=== PATIENT | female | born 1995 | race Caucasian/White ===

== ENCOUNTER 2016-07-28 16:04 | Emergency (ER) | payer OTHER ==
[2016-07-28 16:19] VITALS: BP 135/80; BMI 39.4
--- NOTE | 2016-07-28 16:44 | DR.GENAD ---
HPI - PCP Primary Care Physician: NFD - Complaint/Symptoms Chief Complaint Doctors Comments: History as stated Chief Complaint:: FEELING BAD, SHAKING AND FEELING BAD, NON PRODUCTIVE COUGH. EXTREME WEAKNESS. DENIES NAUSEA, VOMITING AND DIARRHEA - Source History Provided: Patient - Mode of Arrival Mode of Arrival: Ambulatory - Timing Onset of Chief Complaint: 07/27/16 PMH - PMH Past Medical History: No Past Surgical History: Yes Surgical History: Cholecystectomy - Family History History of Family Medical Conditions: Yes Family Medical History: Diabetes Mellitus, Hypertension - Social History Type of Tobacco Use: Cigarettes Alcohol Use: None Do you use any recreational Drugs:: No Lives Where: [facility]isted [facility] - infectious screening In the last 2 months have you had wt loss of >10#?: NO Have you had fever, night sweats or hemotysis?: No Have you traveled outside the country in the last 6 months?: No ROS - Review of Systems Eyes: No Symptoms Reported ENTM: No Symptoms Reported Respiratoy: No Symptoms Reported Cardiovascular: No Symptoms Reported Gastrointestinal/Abdominal: No Symptoms Reported Genitourinary: No Symptoms Reported Neurological: No Symptoms Reported Musculoskeletal: No Symptoms Reported Integumentary: No Symptoms Reported Hematologic/Lymphatic: No Symptoms Reported Endocrine: No Symptoms Reported Psychiatric: No Symptoms Reported All Other Systems: Reviewed and Negative PE - Vital Signs Vitals: Temperature 97.9 F Pulse Rate 99 Respiratory Rate 14 Blood Pressure [Left Arm] 129/69 Blood Pressure 135/80 O2 Sat by Pulse Oximetry 99 - General Limitations: No Limitations General Appearance: Alert, In No Apparent Distress - Head Head Exam: Normal Inspection, Atraumatic - Eyes Eye exam: Normal Appearance, PERRL, EOMI - ENT ENT Exam: Normal Exam External Ear Exam: Normal External Inspection TM/Canal Exam: Bilateral Normal Nose Exam: Normal Nose Exam Mouth Exam: Normal Inspection Throat Exam: Normal Inspection - Neck Neck Exam: Normal Inspection - Chest Chest Inspection: Normal Inspection - Respiratory Respiratory Exam: Normal Lung Sounds Bilat Respiratory Exam: Bilateral Clear to Auscultation - Cardiovascular Cardiovascular Exam: Regular Rate, Normal Rhythm - Abdominal Exam Abdominal Exam: Normal Inspection, Normal Bowel Sounds Abdominal Tenderness: negative: RUQ, RLQ, LUQ, LLQ, Epigastrium, Suprapubic, Diffuse, Mild, Moderate, Severe, Other - Back Back Exam: Normal Inspection, Full ROM - Neurologic Neurological Exam: Alert, Oriented X3, CN II-XII Intact - Skin Skin Exam: Warm, Dry, Intact Course - Reevaluation 1st: Unchanged ROR - Labs Reviewed Laboratory Results Reviewed?: Yes (strep neg; Infulenza pending) Result Diagrams: 07/28/16 16:50 07/28/16 16:50 Laboratory: WBC 10.9 X10^3/uL (3.6-10.0) H 07/28/16 16:50 RBC 4.99 X10^6/uL (3.5-5.4) 07/28/16 16:50 Hgb 14.6 g/dL (12.0-16.0) 07/28/16 16:50 Hct 43.1 % (36.0-47.0) 07/28/16 16:50 MCV 86.4 fL (80.0-100.0) 07/28/16 16:50 MCH 29.3 pg (27.0-34.0) 07/28/16 16:50 MCHC 33.9 g/dL (33.0-35.0) 07/28/16 16:50 RDW 14.0 % (11.6-16.5) 07/28/16 16:50 Plt Count 307 X10^3/uL (150.0-450.0) 07/28/16 16:50 MPV 8.4 fL (7.4-11.0) 07/28/16 16:50 Neut % 72.6 % (42.0-75.0) 07/28/16 16:50 Lymph % 17.8 % (21.0-51.0) L 07/28/16 16:50 [place] % 6.2 % (0.0-13.0) 07/28/16 16:50 Eos % 2.9 % (0.9-2.9) 07/28/16 16:50 Baso % 0.5 % (0.2-1.0) 07/28/16 16:50 Neut # 7.9 x10^3/uL (2.2-4.8) H 07/28/16 16:50 Lymph # 1.9 X10^3/uL (1.3-2.9) 07/28/16 16:50 [place] # 0.7 x10^3/uL (0.3-0.8) 07/28/16 16:50 Eos # 0.3 x10^3/uL (0.0-0.2) H 07/28/16 16:50 Baso # 0.1 X10^3/uL (0.0-0.1) 07/28/16 16:50 Absolute Nucleated RBC 0.0 /100WBC 07/28/16 16:50 Sodium 143 mmol/L (136-145) 07/28/16 16:50 Corrected Sodium 144 mmol/L (136-145) 07/28/16 16:50 Potassium 3.9 mmol/L (3.5-5.1) 07/28/16 16:50 Chloride 108 mmol/L (98-107) H 07/28/16 16:50 Carbon Dioxide 24.7 mmol/L (21-32) 07/28/16 16:50 BUN 13 mg/dL (7-18) 07/28/16 16:50 Creatinine 0.92 mg/dL (0.55-1.02) 07/28/16 16:50 Est GFR (MDRD) Af Amer > 60 (>60) 07/28/16 16:50 Est GFR (MDRD) Non-Af > 60 (>60) 07/28/16 16:50 Glucose 141 mg/dL (65-99) H 07/28/16 16:50 Calcium 9.0 mg/dL (8.5-10.1) 07/28/16 16:50 Streptococcus Screen Negative (NEGATIVE) 07/28/16 16:48 - Diagnosis Discharge Problem: Upper respiratory infection Qualifiers: URI type: unspecified viral URI Qualified Code(s): J06.9 - Acute upper respiratory infection, unspecified; B97.89 - Other viral agents as the cause of diseases classified elsewhere - Discharge Plan Condition: Stable - Follow ups/Referrals Follow ups/Referrals: NFD,None [Primary Care Provider] - 3 days - Instructions
[2016-07-28 17:15] LABS: BASOPHILS # (AUTO) 0.1 X10^3/uL (0.0-0.1); BASOPHILS % (AUTO) 0.5 % (0.2-1.0); EOSINOPHILS # (AUTO) 0.3 x10^3/uL (0.0-0.2); EOSINOPHILS % (AUTO) 2.9 % (0.9-2.9); HEMATOCRIT 43.1 % (36.0-47.0); HEMOGLOBIN 14.6 g/dL (12.0-16.0); LYMPHOCYTES # (AUTO) 1.9 X10^3/uL (1.3-2.9); LYMPHOCYTES % (AUTO) 17.8 % (21.0-51.0); MEAN CORPUSCULAR HEMOGLOBIN 29.3 pg (27.0-34.0); MEAN CORPUSCULAR HGB CONC 33.9 g/dL (33.0-35.0); MEAN CORPUSCULAR VOLUME 86.4 fL (80.0-100.0); MEAN PLATELET VOLUME 8.4 fL (7.4-11.0); MONOCYTES # (AUTO) 0.7 x10^3/uL (0.3-0.8); MONOCYTES % (AUTO) 6.2 % (0.0-13.0); NEUTROPHILS # (AUTO) 7.9 x10^3/uL (2.2-4.8); NEUTROPHILS % (AUTO) 72.6 % (42.0-75.0); PLATELET COUNT 307 X10^3/uL (150.0-450.0); RED BLOOD COUNT 4.99 X10^6/uL (3.5-5.4); WHITE BLOOD COUNT 10.9 X10^3/uL (3.6-10.0)
[2016-07-28 17:19] LABS: BLOOD UREA NITROGEN 13 mg/dL (7-18); CARBON DIOXIDE 24.7 mmol/L (21-32); CHLORIDE 108 mmol/L (98-107); COR NA(FOR HYPERGLY) 144 mmol/L (136-145); CREATININE 0.92 mg/dL (0.55-1.02); GLUCOSE 141 mg/dL (65-99); SODIUM 143 mmol/L (136-145); eGFR BLACK RACES > 60 (>60); eGFR NON BLACK RACES > 60 (>60)
[2016-07-28] MEDS ORDERED: NS 1000 ML 1,000 ML IV ONE (20:20)
== END 2016-07-28 17:40 | disposition home or self-care (01) ==
LOC: ER 16:21
DX: J06.9 Acute upper respiratory infection, unspecified (principal); B97.89 Other viral agents as the cause of diseases classified elsewhere
CPT/HCPCS: 36415; 80048; 84702; 85025; 87070; 87502; 87503; 87880; 99282

== ENCOUNTER 2016-08-14 14:46 | Emergency (ER) | payer OTHER ==
[2016-08-14 14:48] VITALS: BP 135/80
[2016-08-14 14:53] VITALS: BMI 41.0
--- NOTE | 2016-08-14 15:22 | DR.GENAD ---
HPI - PCP Primary Care Physician: NFD - Complaint/Symptoms Chief Complaint:: PT C/O ABD PAIN TO LLQ. PT STATES SHE HAS TAKEN A HOME HCG THAT WAS POSITIVE. - Nurses notes reviewed Nurses Notes Review: Yes - Source History Provided: Patient - Mode of Arrival Mode of Arrival: Ambulatory - Timing Onset of Chief Complaint: 08/11/16 Came on: Gradually - Duration Duration: Constant Duration: Days - Location Location: [facility] - Severity Severity: Mild - Modifying Factors Worsens:: food - Associated Signs and Symptoms Associated Signs and Symptoms: none - Other History Other History: missed period, nausea PMH - PMH Past Medical History: No Past Surgical History: Yes Surgical History: Cholecystectomy - Family History History of Family Medical Conditions: Yes Family Medical History: Diabetes Mellitus, Hypertension - Social History Does patient currently use any type of tobacco product: Yes Have you used tobacco products in the last 12 months: Yes Type of Tobacco Use: Cigarettes Does any household member use tobacco: Yes Alcohol Use: None Do you use any recreational Drugs:: No Lives With: Family Lives Where: Home - infectious screening In the last 2 months have you had wt loss of >10#?: NO Have you had fever, night sweats or hemotysis?: No Have you traveled outside the country in the last 6 months?: No Isolation: Standard ROS - Review of Systems Constitutional: No Symptoms Reported Eyes: No Symptoms Reported ENTM: No Symptoms Reported Respiratoy: No Symptoms Reported Cardiovascular: No Symptoms Reported Gastrointestinal/Abdominal: Nausea Genitourinary: Dysuria Neurological: No Symptoms Reported Musculoskeletal: No Symptoms Reported Integumentary: No Symptoms Reported Hematologic/Lymphatic: No Symptoms Reported Endocrine: No Symptoms Reported Psychiatric: No Symptoms Reported All Other Systems: Reviewed and Negative PE - Vital Signs Vitals: Blood Pressure [Left Arm] 129/69 Blood Pressure 135/80 - General Limitations: No Limitations General Appearance: Alert - Head Head Exam: Normal Inspection - Eyes Eye exam: Normal Appearance, EOMI. negative: Scleral Icterus, Conjunctival Injection - ENT ENT Exam: Normal Exam, Normal Oropharynx External Ear Exam: Normal External Inspection - Neck Neck Exam: Normal Inspection, Full ROM - Chest Chest Inspection: Normal Inspection - Respiratory Respiratory Exam: negative: Accessory Muscle Use, Respiratory Distress Respiratory Exam: Bilateral Clear to Auscultation - Cardiovascular Cardiovascular Exam: Regular Rate - Extremities Extremities Exam: Normal Inspection, Full ROM - Back Back Exam: Normal Inspection, Full ROM - Neurologic Neurological Exam: Alert, Oriented X3, CN II-XII Intact - Psychiatric Psychiatric Exam: Normal Mood - Skin Skin Exam: Intact, Normal Color Course - Consultation Called: 16:10 ROR - Labs Reviewed Laboratory: HCG, Qual Negative <10 mIU/mL 08/14/16 15:30 Specimen Type Clean catch urine 08/14/16 15:32 Urine Color Dark yellow (YELLOW) 08/14/16 15:32 Urine Appearance Slightly hazy (CLEAR) 08/14/16 15:32 Urine pH 6.0 (5.0 - 8.0) 08/14/16 15:32 Ur Specific Hood 1.025 (1.000-1.030) 08/14/16 15:32 Urine Protein 2+ (NEGATIVE) 08/14/16 15:32 Urine Glucose (UA) Negative (NEGATIVE) 08/14/16 15:32 Urine Ketones Negative (NEGATIVE) 08/14/16 15:32 Urine Occult Blood 1+ (NEGATIVE) 08/14/16 15:32 Urine Nitrite Negative (NEGATIVE) 08/14/16 15:32 Urine Bilirubin Negative (NEGATIVE) 08/14/16 15:32 Urine Urobilinogen 1+ (NORMAL) 08/14/16 15:32 Ur Leukocyte Esterase 3+ (NEGATIVE) 08/14/16 15:32 Urine RBC 2-5 /HPF (NEGATIVE) 08/14/16 15:32 Urine WBC 8-12 /HPF (NEGATIVE) 08/14/16 15:32 Ur Squamous Epith Cells Many /HPF (NEGATIVE) 08/14/16 15:32 Urine Bacteria 2+ /HPF (NEGATIVE) 08/14/16 15:32 Urine Mucus Few /HPF (NEGATIVE) 08/14/16 15:32 Ur Culture Indicated? Yes/culture set up 08/14/16 15:32 - Diagnosis Discharge Problem: UTI (urinary tract infection) Qualifiers: Urinary tract infection type: acute cystitis Hematuria presence: with hematuria Qualified Code(s): N30.01 - Acute cystitis with hematuria - Discharge Plan Condition: Stable Prescriptions: Nitrofurantoin Macro [Macrobid Cap 100 mg Ext Rel] 100 mg PO BID #14 cap - Follow ups/Referrals Follow ups/Referrals: NFD,None [Primary Care Provider] - 3 days - Instructions
[2016-08-14 15:38] LABS: BILIRUBIN,URINE NEGATIVE (NEGATIVE); BLOOD/HEMOGLOBIN,URINE 1+ (NEGATIVE); GLUCOSE, URINE NEGATIVE (NEGATIVE); KETONES,URINE NEGATIVE (NEGATIVE); LEUKOCYTE ESTERASE ,URINE 3+ (NEGATIVE); NITRITES,URINE NEGATIVE (NEGATIVE); PROTEIN,URINE 2+ (NEGATIVE); UROBILINOGEN,URINE 1+ (NORMAL)
[2016-08-14 15:51] LABS: SERUM PREGNANCY TEST, QUAL NEGATIVE <10 mIU/mL
[2016-08-14 16:06] LABS: APPEARANCE,URINE SLIGHTLY HAZY (CLEAR); BACTERIA,URINE 2+ /HPF (NEGATIVE); COLOR,URINE DARK YELLOW (YELLOW); SQUAMOUS EPITHELIAL CELL,UR MANY /HPF (NEGATIVE)
[2016-08-14 16:07] LABS: MUCUS,URINE FEW /HPF (NEGATIVE)
== END 2016-08-14 16:23 | disposition home or self-care (01) ==
LOC: ER 15:06
DX: N30.01 Acute cystitis with hematuria (principal); B96.29 Other Escherichia coli [E. coli] as the cause of diseases classified elsewhere
CPT/HCPCS: 36415; 81001; 84703; 87086; 87088; 87186; 99282

== ENCOUNTER 2016-09-08 23:06 | Emergency (ER) | payer SELFPAY ==
[2016-09-08 23:13] VITALS: BP 122/81; BMI 41.1
--- NOTE | 2016-09-09 00:11 | DR.GENAD ---
HPI - PCP Primary Care Physician: NFD - HPI Comment HPI Comment: PAITNT INJURED KNEE FEW DAYS AGO. PROGRESSIVE PAIN SINCE. SWELLING NOTED BY PATIRNT BELOW LEFT KNEE. - Complaint/Symptoms Chief Complaint Doctors Comments: LEFT KNEE PAIN. TIMES ONE WEEK. Chief Complaint:: PT STATES" MY LEG HURTS FROM HERE TOO HERE, IT WAS BIGGER THAN THIS TODAY." PT POINTS TOO AREA BELOW KNEE AND ABOVE LT KNEE NO ACUTE DEFORMITY OR SWELLING NOTED - Nurses notes reviewed Nurses Notes Review: Yes - Source History Provided: Patient - Mode of Arrival Mode of Arrival: Ambulatory - Timing Onset of Chief Complaint: 09/01/16 Came on: Suddenly - Duration Duration: Constant Duration: Days - Severity Severity: Moderate PMH - PMH Past Medical History: No Past Surgical History: Yes Surgical History: Cholecystectomy - Family History History of Family Medical Conditions: Yes Family Medical History: Diabetes Mellitus - Social History Type of Tobacco Use: Cigarettes Do you use any recreational Drugs:: No Lives With: Family - infectious screening In the last 2 months have you had wt loss of >10#?: NO Have you had fever, night sweats or hemotysis?: No Have you traveled outside the country in the last 6 months?: No Isolation: Standard ROS - Review of Systems Constitutional: No Symptoms Reported Eyes: No Symptoms Reported ENTM: No Symptoms Reported Respiratoy: No Symptoms Reported Cardiovascular: No Symptoms Reported Gastrointestinal/Abdominal: No Symptoms Reported Genitourinary: No Symptoms Reported Neurological: No Symptoms Reported Musculoskeletal: Left, Knee (PAIN AND SWELLING LEFT KNEE.) Integumentary: No Symptoms Reported Hematologic/Lymphatic: No Symptoms Reported Endocrine: No Symptoms Reported All Other Systems: Reviewed and Negative PE - Vital Signs Vitals: Temperature 98.3 F Pulse Rate 100 Respiratory Rate 18 Blood Pressure [Left Arm] 129/69 Blood Pressure 122/81 O2 Sat by Pulse Oximetry 99 - General Limitations: No Limitations General Appearance: Alert - Head Head Exam: Normal Inspection - Eyes Eye exam: Normal Appearance - ENT ENT Exam: Normal External Ear Exam External Ear Exam: Normal External Inspection TM/Canal Exam: Bilateral Normal Nose Exam: Normal Nose Exam Mouth Exam: Normal Inspection Throat Exam: Normal Inspection - Neck Neck Exam: Normal Inspection - Chest Chest Inspection: Symmetric Chest Wall Rise - Respiratory Respiratory Exam: Normal Lung Sounds Bilat Respiratory Exam: Bilateral Clear to Auscultation - Cardiovascular Cardiovascular Exam: Regular Rate, Normal Rhythm, Normal Heart Sounds - Abdominal Exam Abdominal Exam: Normal Inspection - Extremities Extremities Exam: Tenderness (RIGHT KNEE TENDERNESS AND SWELLING BELOW LEFT KNEE ANTERIOR ASPECT.) - Back Back Exam: Normal Inspection - Neurologic Neurological Exam: Alert, Oriented X3 - Psychiatric Psychiatric Exam: Normal Affect, Normal Mood - Skin Skin Exam: Normal Color MDM - Differential Diagnosis Differential Diagnosis: RIGHT KNEE SPRAIN, FRACTURE, STRAIN OR CONTUSION. Course - Treatment Treatment: SEE ORDERS. - Education/Counseling Education/Counseling: Patient, Education Educated On: Diagnosis ROR - XRAY XRAY Interpreted by: Radiologist - Diagnosis Discharge Problem: Left knee sprain Qualifiers: Encounter type: initial encounter Involved ligament of knee: unspecified ligament Qualified Code(s): S83.92XA - Sprain of unspecified site of left knee, initial encounter Contusion of left knee Qualifiers: Encounter type: initial encounter Qualified Code(s): S80.02XA - Contusion of left knee, initial encounter - Discharge Plan Disposition: HOME, SELF-CARE Condition: Stable Prescriptions: Ibuprofen [Motrin Tab 800 mg] 800 mg PO Q8H PRN #20 tab PRN Reason: Pain/Inflammation - Follow ups/Referrals Follow ups/Referrals: NFD,None [Primary Care Provider] - 3 days - Instructions Instructions: Knee Sprain, [id number], Knee Pain, [id number] Additional Instructions: RETURN TO ED IF WORSE.
--- NOTE | 2016-09-09 00:37 | RAD ---
EXAM: Left knee x-ray INDICATION: Pain COMPARISION: No priors TECHNIQUE: AP and lateral, 2 views FINDINGS: No acute fracture or dislocation. There is no evidence of an intraosseous lesion. The joint spaces a re preserved. No joint effusion is identified. The surrounding soft tissues appear unremarkable. The re is no evidence of a radiopaque foreign body. IMPRESSION: Normal left knee x-ray exam Reported By:
[2016-09-09] MEDS ORDERED: MOTRIN TAB 800 MG PO ONE ×2 (00:47→00:51)
== END 2016-09-09 00:59 | disposition home or self-care (01) ==
LOC: ER 23:22
DX: S83.92XA Sprain of unspecified site of left knee, initial encounter (principal); S80.02XA Contusion of left knee, initial encounter; Y33.XXXA Other specified events, undetermined intent, initial encounter; Y92.9 Unspecified place or not applicable
CPT/HCPCS: 29530; 73560; 99282; 99283

== ENCOUNTER 2016-09-11 10:46 | Emergency (ER) | payer SELFPAY ==
[2016-09-11 10:51] VITALS: BP 122/72; BMI 41.1
--- NOTE | 2016-09-11 11:55 | DR.GENAD ---
HPI - PCP Primary Care Physician: NFD - Complaint/Symptoms Chief Complaint Doctors Comments: Patient admits to helping a natalie move from [place] over the weekend and now she has low back pain ahd nasal congestion. She denies fever, vomitng or diarrhea Chief Complaint:: PT C/O C/C/C FOR THE PAST 5 DAYS. PT STATES SHE WAS JUST SEEN FOR A DIFFERENT REASON ON THE AND HER LEG IS NOT GETTTING ANY BETTER ALSO - Source History Provided: Patient - Mode of Arrival Mode of Arrival: Ambulatory - Timing Onset of Chief Complaint: 09/06/16 PMH - PMH Past Medical History: No Past Surgical History: Yes Surgical History: Cholecystectomy - Family History History of Family Medical Conditions: Yes Family Medical History: Diabetes Mellitus - Social History Does patient currently use any type of tobacco product: Yes Have you used tobacco products in the last 12 months: Yes Type of Tobacco Use: Cigarettes Does any household member use tobacco: Yes Alcohol Use: None Do you use any recreational Drugs:: No Lives With: Family Lives Where: Home - infectious screening In the last 2 months have you had wt loss of >10#?: NO Have you had fever, night sweats or hemotysis?: No Have you traveled outside the country in the last 6 months?: No Isolation: Standard ROS - Review of Systems Eyes: No Symptoms Reported ENTM: No Symptoms Reported Respiratoy: No Symptoms Reported Cardiovascular: No Symptoms Reported Gastrointestinal/Abdominal: No Symptoms Reported Genitourinary: No Symptoms Reported Neurological: No Symptoms Reported, Emotional Problems Musculoskeletal: No Symptoms Reported Integumentary: No Symptoms Reported Hematologic/Lymphatic: No Symptoms Reported Endocrine: No Symptoms Reported Psychiatric: No Symptoms Reported All Other Systems: Reviewed and Negative PE - Vital Signs Vitals: Temperature 98.0 F Pulse Rate 71 Respiratory Rate 20 Blood Pressure [Left Arm] 129/69 Blood Pressure 122/72 O2 Sat by Pulse Oximetry 100 - General Limitations: No Limitations General Appearance: Alert, In No Apparent Distress - Head Head Exam: Normal Inspection, Atraumatic - Eyes Eye exam: Normal Appearance, PERRL, EOMI - ENT ENT Exam: Normal Exam External Ear Exam: Normal External Inspection TM/Canal Exam: Bilateral Normal Nose Exam: Normal Nose Exam Mouth Exam: Normal Inspection Throat Exam: Normal Inspection - Neck Neck Exam: Normal Inspection - Chest Chest Inspection: Normal Inspection - Respiratory Respiratory Exam: Normal Lung Sounds Bilat Respiratory Exam: Bilateral Clear to Auscultation - Cardiovascular Cardiovascular Exam: Regular Rate, Normal Rhythm - Abdominal Exam Abdominal Exam: Normal Inspection Abdominal Tenderness: negative: RUQ, RLQ, LUQ, LLQ, Epigastrium, Suprapubic, Diffuse, Mild, Moderate, Severe, Other - Extremities Extremities Exam: Normal Inspection, Full ROM - Back Back Exam: Normal Inspection, Full ROM - Neurologic Neurological Exam: Alert, Oriented X3, CN II-XII Intact - Psychiatric Psychiatric Exam: Normal Affect, Normal Mood - Skin Skin Exam: Warm, Dry, Intact - Diagnosis Discharge Problem: Acute rhinosinusitis - Discharge Plan Condition: Stable - Follow ups/Referrals Follow ups/Referrals: NFD,None [Primary Care Provider] - 3 days - Instructions
== END 2016-09-11 12:07 | disposition home or self-care (01) ==
LOC: ER 10:54
DX: J01.80 Other acute sinusitis (principal)
CPT/HCPCS: 99281; 99282

== ENCOUNTER 2016-09-13 20:30 | Emergency (ER) | payer SELFPAY ==
[2016-09-13 20:37] VITALS: BP 123/76; BMI 41.1
--- NOTE | 2016-09-13 21:05 | DR.FEVERAD ---
HPI - Time seen Time seen: 21:00 - PCP Primary Care Physician: NFD - Complaints/Symptoms Chief Complaint Doctor Comments: Patient states that she did not get her prescription for congestion two days ago because if was not covered by her insurance. It was OTC. Today c/o nipples hurting, has not done anything to cause them to hurt, no manipulation. Chief Complaint:: "MY NIPPLES FEEL LIKE THEY ARE ON FIRE, FEEL LIKE I GOT A FEVER. I FEEL LIKE I AM ON FIRE. I WAS GIVEN FLEXERIL FOR MY BACK YESTERDAY, I DON'T IF THIS IS A SIDE EFFECT OR NOT. I DID TAKE SOME COLD AND FLU THIS AM FOR MY COLD." - Source History Provided: Patient - Mode of Arrival Mode of Arrival: Ambulatory - Timing Onset of Chief Complaint: 09/13/16 PMH - PMH Past Medical History: No Past Surgical History: Yes Surgical History: Cholecystectomy - Family History History of Family Medical Conditions: Yes Family Medical History: Diabetes Mellitus - Social History Type of Tobacco Use: Cigarettes Alcohol Use: None Do you use any recreational Drugs:: No Lives With: Family Lives Where: Home - infectious screening Have you traveled outside the country in the last 6 months?: No Isolation: Standard ROS - Review of Systems Eyes: No Symptoms Reported ENTM: No Symptoms Reported Respiratoy: No Symptoms Reported Cardiovascular: No Symptoms Reported Gastrointestinal/Abdominal: No Symptoms Reported Genitourinary: No Symptoms Reported Neurological: No Symptoms Reported Musculoskeletal: Other (nipples are hurting) Integumentary: No Symptoms Reported Hematologic/Lymphatic: No Symptoms Reported Endocrine: No Symptoms Reported Psychiatric: No Symptoms Reported All Other Systems: Reviewed and Negative PE - Vital Signs Vitals: Temperature 97.6 F Pulse Rate 89 Respiratory Rate 16 Blood Pressure [Left Arm] 129/69 Blood Pressure 123/76 O2 Sat by Pulse Oximetry 98 - General Limitations: No Limitations General Appearance: Alert, In No Apparent Distress - Eyes Eye exam: Normal Appearance, PERRL, EOMI - ENT ENT Exam: Normal Exam, Other (nasal congestion) External Ear Exam: Normal External Inspection TM/Canal Exam: Bilateral Normal Nose Exam: Normal Nose Exam Nasal Speculum Exam: Bilateral Normal Mouth Exam: Normal Inspection Teeth Exam: Normal Inspection Throat Exam: Normal Inspection - Neck Neck Exam: Normal Inspection - Respiratory Respiratory Exam: Normal Lung Sounds Bilat Respiratory Exam: Bilateral Clear to Auscultation - Cardiovascular Cardiovascular Exam: Regular Rate - Abdominal Exam Abdominal Exam: Normal Inspection, Normal Bowel Sounds Abdominal Tenderness: negative: RUQ, RLQ, LUQ, LLQ, Epigastrium, Suprapubic, Diffuse, Mild, Moderate, Severe, Other - Extremities Extremities Exam: Normal Inspection - Back Back Exam: Normal Inspection, Full ROM - Neurologic Neurological Exam: Alert, Oriented X3, CN II-XII Intact - Psychiatric Psychiatric Exam: Normal Affect, Normal Mood - Skin Skin Exam: Warm, Dry Type of Lesion: Rash, Abscess Distribution: Generalized - Diagnosis Discharge Problem: Upper respiratory infection Qualifiers: URI type: unspecified viral URI Qualified Code(s): J06.9 - Acute upper respiratory infection, unspecified; B97.89 - Other viral agents as the cause of diseases classified elsewhere - Discharge Plan Condition: Stable - Follow ups/Referrals Follow ups/Referrals: NFD,None [Primary Care Provider] - 3 days - Instructions
== END 2016-09-13 21:16 | disposition home or self-care (01) ==
LOC: ER 20:30
DX: J06.9 Acute upper respiratory infection, unspecified (principal); B97.89 Other viral agents as the cause of diseases classified elsewhere
CPT/HCPCS: 99281; 99282

== ENCOUNTER 2016-09-20 16:41 | Emergency (ER) | payer SELFPAY ==
[2016-09-20 16:45] VITALS: BP 119/74; BMI 41.1
--- NOTE | 2016-09-20 18:39 | DR.GENAD ---
HPI - PCP Primary Care Physician: NFD - Complaint/Symptoms Chief Complaint Doctors Comments: Patient complains of right lower back pain for the past 2-3 weeks getting worst when she set down. she denies fever, chills, nausea or voming. States she was having problems with the left lower back a few weeks ago and Dr. Hoang gave her Motrin 800 and Flexeril. States she is unable to take the Flexeril because it makes her dizzy. State she has a family history of kidney stones. She denies hematuria, or jonnathan. States she does not have a locak doctor. Chief Complaint:: PATIENT STATED THAT HER RIGHT SIDE OF HER BACK IS HURTING. STARTED 2 WEEKS AGO. - Nurses notes reviewed Nurses Notes Review: Yes - Source History Provided: Patient - Mode of Arrival Mode of Arrival: Ambulatory - Timing Onset of Chief Complaint: 09/06/16 Came on: Gradually - Duration Duration: Intermittent How lon Duration: Weeks - Location Location: right lower back pain - Severity Severity: Moderate - Modifying Factors Worsens:: setting up and movement Improves:: nothing PMH - PMH Past Medical History: No Past Surgical History: Yes Surgical History: Cholecystectomy - Family History History of Family Medical Conditions: Yes Family Medical History: Diabetes Mellitus - Social History Does patient currently use any type of tobacco product: Yes Have you used tobacco products in the last 12 months: Yes Type of Tobacco Use: Cigarettes Does any household member use tobacco: No Alcohol Use: None Do you use any recreational Drugs:: No Lives With: Family Lives Where: Home - infectious screening In the last 2 months have you had wt loss of >10#?: NO Have you had fever, night sweats or hemotysis?: No Have you traveled outside the country in the last 6 months?: No Isolation: Standard ROS - Review of Systems Constitutional: No Symptoms Reported. negative: See HPI, Chills, Diaphoresis, Fever, Malaise, Weakness, Irritable, Fatigue, Loss of Appetite, Other Eyes: No Symptoms Reported ENTM: No Symptoms Reported Respiratoy: No Symptoms Reported Cardiovascular: No Symptoms Reported. negative: See HPI, Chest Pain, Edema, Palpitations, Syncope, Cyanosis, Skin Mottling, Other Gastrointestinal/Abdominal: No Symptoms Reported. negative: See HPI, Abdominal Pain, Constipation, Diarrhea, Nausea, Vomiting, Food Intolerance, Other Genitourinary: No Symptoms Reported. negative: See HPI, Discharge, Dysuria, Frequency, Hematuria, Pain, Bleeding, Other Neurological: No Symptoms Reported. negative: See HPI, Anxiety, Depressed, Emotional Problems, Headache, Numbness, Paresthesia, Pre-existing Deficit, Seizure, Tingling, Tremors, Weakness, Dizziness, Problems Walking, Speech Problem, Other Musculoskeletal: No Symptoms Reported, Right, Back Integumentary: No Symptoms Reported Hematologic/Lymphatic: No Symptoms Reported Endocrine: No Symptoms Reported Psychiatric: No Symptoms Reported PE - Vital Signs Vitals: Temperature 97.4 F Pulse Rate 87 Respiratory Rate 20 Blood Pressure [Left Arm] 129/69 Blood Pressure 119/74 O2 Sat by Pulse Oximetry 97 - General Limitations: No Limitations General Appearance: Alert, In No Apparent Distress, Obese - Head Head Exam: Normal Inspection, Atraumatic, Normocephalic - Eyes Eye exam: Normal Appearance, PERRL, EOMI. negative: Scleral Icterus, Conjunctival Injection, Nystagmus, Miosis, Mydrasis, Periorbital Swelling, Periorbital Tenderness, Other - ENT ENT Exam: Normal Exam, Normal Oropharynx, Normal External Ear Exam, Mucous Membranes Moist, TM's Normal Bilaterally External Ear Exam: Normal External Inspection TM/Canal Exam: Bilateral Normal Nose Exam: Normal Nose Exam Mouth Exam: Normal Inspection Throat Exam: Normal Inspection - Neck Neck Exam: Normal Inspection, Full ROM, Trachea Midline. negative: Tenderness, Meningismus, Lymphadenopathy, Thyromegaly, Other - Chest Chest Inspection: Normal Inspection, Symmetric Chest Wall Rise - Respiratory Respiratory Exam: Normal Lung Sounds Bilat Respiratory Exam: Bilateral Clear to Auscultation - Cardiovascular Cardiovascular Exam: Regular Rate, Normal Rhythm, Normal Heart Sounds. negative : Bradycardia, Tachycardia, Irregular Rhythm, Systolic Murmur, Diastolic Murmur , Rubs, Gallop, Clicks, JVD, +S1, +S2, +S3, +S4, Other - Abdominal Exam Abdominal Exam: Normal Inspection, Normal Bowel Sounds, Soft Abdominal Tenderness: negative: RUQ, RLQ, LUQ, LLQ, Epigastrium, Suprapubic, Diffuse, Mild, Moderate, Severe, Other - Extremities Extremities Exam: Normal Inspection, Full ROM, Tenderness, Normal Capillary Refill - Back Back Exam: Normal Inspection, Full ROM, (R) CVA Tenderness, Paraspinal Tenderness. negative: Tenderness, (L) CVA Tenderness, Muscle Spasm, Vertebral Tenderness, Rashes, (R) Sciatic Notch Tenderness, (L) Sciatic Notch Tendern, (R ) Straight Leg Raise, (L) Straight Leg Raise, Other - Neurologic Neurological Exam: Alert, Oriented X3, CN II-XII Intact, Normal Gait, Reflexes Normal - Psychiatric Psychiatric Exam: Normal Affect, Normal Mood. negative: Depressed, Agitated, Anxious, Flat Affect, Manic, Homicidal Ideation, Suicidal Ideation, Other - Skin Skin Exam: Warm, Dry, Intact, Normal Color. negative: Rash, Cyanosis, Diaphoresis, Erythema, Pallor, Mottled, Other ROR - Labs Reviewed Laboratory Results Reviewed?: Yes (All labs and x-ray results reviewed and discussed with patient) Laboratory: HCG, Qual Negative <10 mIU/mL 09/20/16 18:45 Specimen Type Clean catch urine 09/20/16 19:03 Urine Color Yellow (YELLOW) 09/20/16 19:03 Urine Appearance Cloudy (CLEAR) 09/20/16 19:03 Urine pH 7.0 (5.0 - 8.0) 09/20/16 19:03 Ur Specific [place] 1.020 (1.000-1.030) 09/20/16 19:03 Urine Protein Negative (NEGATIVE) 09/20/16 19:03 Urine Glucose (UA) Negative (NEGATIVE) 09/20/16 19:03 Urine Ketones Negative (NEGATIVE) 09/20/16 19:03 Urine Occult Blood 4+ (NEGATIVE) 09/20/16 19:03 Urine Nitrite Negative (NEGATIVE) 09/20/16 19:03 Urine Bilirubin Negative (NEGATIVE) 09/20/16 19:03 Urine Urobilinogen Normal (NORMAL) 09/20/16 19:03 Ur Leukocyte Esterase Negative (NEGATIVE) 09/20/16 19:03 Urine RBC 0-3 /HPF (NEGATIVE) 09/20/16 19:03 Urine WBC 0-3 /HPF (NEGATIVE) 09/20/16 19:03 Ur Squamous Epith Cells Rare /HPF (NEGATIVE) 09/20/16 19:03 Amorphous Sediment Trace /HPF (NEGATIVE) 09/20/16 19:03 Urine Bacteria 2+ /HPF (NEGATIVE) 09/20/16 19:03 Ur Culture Indicated? Yes/culture set up 09/20/16 19:03 Urine Opiates Screen Negative (NEG=<300) 09/20/16 19:03 Urine Methadone Screen Negative (NEG=<300) 09/20/16 19:03 Ur Barbiturates Screen Negative (NEG=<200) 09/20/16 19:03 Ur Phencyclidine Scrn Negative (NEG=<25) 09/20/16 19:03 Ur Amphetamines Screen Negative (NEG=<1000) 09/20/16 19:03 U Benzodiazepines Scrn Negative (NEG=<200) 09/20/16 19:03 Urine Cocaine Screen Negative (NEG=<300) 09/20/16 19:03 U Marijuana (THC) Screen Negative (NEG=<50) 09/20/16 19:03 - XRAY XRAY Interpreted by: Radiologist (CT lumbar: No signigicant abnormality) - Diagnosis Discharge Problem: Urinary tract infection, Muscle spasm of back Low back pain Qualifiers: Chronicity: chronic Back pain laterality: right Sciatica presence: without sciatica Qualified Code(s): M54.5 - Low back pain; G89.29 - Other chronic pain - Discharge Plan Disposition: HOME, SELF-CARE Condition: Stable Prescriptions: Ciprofloxacin HCl [CIPRO 500 MG TAB *] 500 mg PO Q12H #20 tab Methocarbamol [Robaxin 750 mg] 750 mg PO BID PRN #24 tab PRN Reason: Muscle Spasms - Follow ups/Referrals Follow ups/Referrals: NFD,None [Primary Care Provider] - 3 days JAG DHALIWAL [CONSULTING PHYSICIAN] - 3 days - Instructions Instructions: Urinary Tract Infection, Back Pain, Adult, [id number]
[2016-09-20 19:10] LABS: SERUM PREGNANCY TEST, QUAL NEGATIVE <10 mIU/mL
[2016-09-20 19:11] LABS: BILIRUBIN,URINE NEGATIVE (NEGATIVE); BLOOD/HEMOGLOBIN,URINE 4+ (NEGATIVE); GLUCOSE, URINE NEGATIVE (NEGATIVE); KETONES,URINE NEGATIVE (NEGATIVE); LEUKOCYTE ESTERASE ,URINE NEGATIVE (NEGATIVE); NITRITES,URINE NEGATIVE (NEGATIVE); PROTEIN,URINE NEGATIVE (NEGATIVE); UROBILINOGEN,URINE NORMAL (NORMAL)
--- NOTE | 2016-09-20 19:17 | CT ---
CT lumbar spine without contrast Indication: Right lower back pain, flank pain. Comparison: None Technique: CT images of the lumbar spine were obtained without contrast. Automatic exposure control was utilized. Findings: The lumbar spine vertebral body heights are normally maintained. The intervertebral disc s paces and facet joints are intact, without significant arthropathy. No acute fracture or subluxation is seen. The neural foramina and spinal canal are grossly patent. No renal or ureteral stone identi fied. There is no hydronephrosis. Impression: No significant abnormality. Reported By:
[2016-09-20 19:19] LABS: AMORPHOUS SEDIMENT,UR TRACE /HPF (NEGATIVE); APPEARANCE,URINE CLOUDY (CLEAR); BACTERIA,URINE 2+ /HPF (NEGATIVE); COLOR,URINE YELLOW (YELLOW); RBC,URINE 0-3 /HPF (NEGATIVE); SQUAMOUS EPITHELIAL CELL,UR RARE /HPF (NEGATIVE)
== END 2016-09-20 19:43 | disposition home or self-care (01) ==
LOC: ER 16:54
DX: N39.0 Urinary tract infection, site not specified (principal); M62.830 Muscle spasm of back; M54.5 Low back pain; G89.29 Other chronic pain
CPT/HCPCS: 36415; 72131; 80307; 81001; 84703; 87086; 99283; G0434

== ENCOUNTER 2016-10-04 21:09 | Emergency (ER) | payer SELFPAY ==
[2016-10-04 21:22] VITALS: BP 142/94; BMI 26.1
--- NOTE | 2016-10-04 22:36 | DR.GENAD ---
HPI - PCP Primary Care Physician: NFSunshine - HPI Comment HPI Comment: PAIN ASSOCIATED WITH NAUSEA BUT NO VOMITING OR DIARRHEA. NO CONSTIPATION. NO HISTORY OF CYST IN [place] AND DENIES DYSURIA OR VAGINAL DISCHARGE. SYMTOMS GETTING WORSE. - Complaint/Symptoms Chief Complaint Doctors Comments: LOWER ABDOMINAL PAIN TIMES 3 DAYS. Chief Complaint:: "Pain in my lower stomach and it really hurts." - Nurses notes reviewed Nurses Notes Review: Yes - Source History Provided: Patient - Mode of Arrival Mode of Arrival: Ambulatory - Timing Onset of Chief Complaint: 10/01/16 Came on: Suddenly - Duration Duration: Constant Duration: Hours - Severity Severity: Moderate PMH - PMH Past Medical History: No Past Surgical History: Yes Surgical History: Cholecystectomy - Family History History of Family Medical Conditions: Yes Family Medical History: Diabetes Mellitus, Hypertension - Social History Alcohol Use: None Do you use any recreational Drugs:: No - infectious screening Have you traveled outside the country in the last 6 months?: No ROS - Review of Systems Constitutional: Weakness, Fatigue. negative: Fever Eyes: No Symptoms Reported. negative: Eye Pain, Discharge ENTM: No Symptoms Reported. negative: Ear Pain, Nose Discharge, Nose Congestion , Throat Pain Respiratoy: No Symptoms Reported. negative: Productive Cough, Non-Productive Cough, Short of Breath, Wheezing, Hemoptysis Cardiovascular: No Symptoms Reported. negative: Chest Pain Gastrointestinal/Abdominal: Abdominal Pain, Nausea Genitourinary: No Symptoms Reported. negative: Dysuria, Frequency, Hematuria Neurological: Weakness Musculoskeletal: Muscle Pain Integumentary: No Symptoms Reported Hematologic/Lymphatic: No Symptoms Reported Endocrine: No Symptoms Reported All Other Systems: Reviewed and Negative PE - Vital Signs Vitals: Temperature 98.9 F Pulse Rate 85 Respiratory Rate 18 Blood Pressure [Left Arm] 129/69 Blood Pressure 142/94 O2 Sat by Pulse Oximetry 98 - General Limitations: No Limitations General Appearance: Alert - Head Head Exam: Normal Inspection - Eyes Eye exam: Normal Appearance - ENT ENT Exam: Normal External Ear Exam External Ear Exam: Normal External Inspection TM/Canal Exam: Bilateral Normal Mouth Exam: Normal Inspection Throat Exam: Normal Inspection - Neck Neck Exam: Trachea Midline - Chest Chest Inspection: Symmetric Chest Wall Rise - Respiratory Respiratory Exam: Bilateral Clear to Auscultation - Cardiovascular Cardiovascular Exam: Regular Rate, Normal Rhythm, Normal Heart Sounds - Abdominal Exam Abdominal Exam: Normal Bowel Sounds, Soft, Tenderness Abdominal Tenderness: RLQ, LLQ, Suprapubic, Mild - Extremities Extremities Exam: Normal Inspection - Back Back Exam: Normal Inspection - Neurologic Neurological Exam: Alert, Oriented X3 - Skin Skin Exam: Normal Color MDM - Differential Diagnosis Differential Diagnosis: ABDOMINAL PAIN, BOWEL OBST, UTI, KIDNEY STONE OVARIAN CYST. Course - Treatment Treatment: SEE ORDERS - Education/Counseling Education/Counseling: Patient, Education Educated On: Diagnosis, Needs for Follow Up ROR - Labs Reviewed Laboratory Results Reviewed?: Yes Result Diagrams: 10/04/16 22:30 10/04/16 22:30 Laboratory: 10/04/16 22:50 Urine,Clean Catch Urine Culture - Final WBC 10.6 X10^3/uL (3.6-10.0) H 10/04/16 22:30 RBC 5.14 X10^6/uL (3.5-5.4) 10/04/16 22:30 Hgb 15.4 g/dL (12.0-16.0) 10/04/16 22:30 Hct 44.6 % (36.0-47.0) 10/04/16 22:30 MCV 86.7 fL (80.0-100.0) 10/04/16 22:30 MCH 29.9 pg (27.0-34.0) 10/04/16 22:30 MCHC 34.5 g/dL (33.0-35.0) 10/04/16 22:30 RDW 13.9 % (11.6-16.5) 10/04/16 22:30 Plt Count 290 X10^3/uL (150.0-450.0) 10/04/16 22:30 MPV 8.4 fL (7.4-11.0) 10/04/16 22:30 Neut % 69.5 % (42.0-75.0) 10/04/16 22:30 Lymph % 22.5 % (21.0-51.0) 10/04/16 22:30 [place] % 5.9 % (0.0-13.0) 10/04/16 22:30 Eos % 1.3 % (0.9-2.9) 10/04/16 22:30 Baso % 0.8 % (0.2-1.0) 10/04/16 22:30 Neut # 7.3 x10^3/uL (2.2-4.8) H 10/04/16 22:30 Lymph # 2.4 X10^3/uL (1.3-2.9) 10/04/16 22:30 [place] # 0.6 x10^3/uL (0.3-0.8) 10/04/16 22:30 Eos # 0.1 x10^3/uL (0.0-0.2) 10/04/16 22:30 Baso # 0.1 X10^3/uL (0.0-0.1) 10/04/16 22:30 Absolute Nucleated RBC 0.1 /100WBC 10/04/16 22:30 Sodium 140 mmol/L (136-145) 10/04/16 22:30 Corrected Sodium TNP 10/04/16 22:30 Potassium 3.8 mmol/L (3.5-5.1) 10/04/16 22:30 Chloride 106 mmol/L (98-107) 10/04/16 22:30 Carbon Dioxide 22.5 mmol/L (21-32) 10/04/16 22:30 BUN 17 mg/dL (7-18) 10/04/16 22:30 Creatinine 0.86 mg/dL (0.55-1.02) 10/04/16 22:30 Est GFR (MDRD) Af Amer > 60 (>60) 10/04/16 22:30 Est GFR (MDRD) Non-Af > 60 (>60) 10/04/16 22:30 Glucose 100 mg/dL (65-99) H 10/04/16 22:30 Calcium 9.6 mg/dL (8.5-10.1) 10/04/16 22:30 Corrected Calcium TNP 10/04/16 22:30 Total Bilirubin 0.30 mg/dL (0.2-1.0) 10/04/16 22:30 AST 24 Units/L (15-37) 10/04/16 22:30 ALT 46 Units/L (12-78) 10/04/16 22:30 Alkaline Phosphatase 75 Units/L (46-116) 10/04/16 22:30 Total Protein 7.7 g/dL (6.4-8.2) 10/04/16 22:30 Albumin 4.0 g/dL (3.4-5.0) 10/04/16 22:30 Globulin 3.7 g/dL (2.5-4.5) 10/04/16 22:30 Albumin/Globulin Ratio 1.1 Ratio (1.1-2.1) 10/04/16 22:30 HCG, Qual Negative <10 mIU/mL 10/04/16 22:30 Specimen Type Clean catch urine 10/04/16 22:50 Urine Color Yellow (YELLOW) 10/04/16 22:50 Urine Appearance Cloudy (CLEAR) 10/04/16 22:50 Urine pH 8.0 (5.0 - 8.0) 10/04/16 22:50 Ur Specific [place] 1.015 (1.000-1.030) 10/04/16 22:50 Urine Protein Negative (NEGATIVE) 10/04/16 22:50 Urine Glucose (UA) Negative (NEGATIVE) 10/04/16 22:50 Urine Ketones Negative (NEGATIVE) 10/04/16 22:50 Urine Occult Blood Negative (NEGATIVE) 10/04/16 22:50 Urine Nitrite Negative (NEGATIVE) 10/04/16 22:50 Urine Bilirubin Negative (NEGATIVE) 10/04/16 22:50 Urine Urobilinogen Normal (NORMAL) 10/04/16 22:50 Ur Leukocyte Esterase 1+ (NEGATIVE) 10/04/16 22:50 Urine RBC None seen /HPF (NEGATIVE) 10/04/16 22:50 Urine WBC 6-8 /HPF (NEGATIVE) 10/04/16 22:50 Ur Squamous Epith Cells Few /HPF (NEGATIVE) 10/04/16 22:50 Amorphous Sediment 1+ /HPF (NEGATIVE) 10/04/16 22:50 Urine Bacteria 2+ /HPF (NEGATIVE) 10/04/16 22:50 Urine Trichomonas Moderate /HPF (NEGATIVE) 10/04/16 22:50 Ur Culture Indicated? Yes/culture set up 10/04/16 22:50 - Diagnosis Discharge Problem: Abdominal pain, UTI (urinary tract infection) - Discharge Plan Disposition: HOME, SELF-CARE Condition: Stable Prescriptions: Ibuprofen [MOTRIN TAB 600 MG *] 600 mg PO TID PRN #20 tab PRN Reason: Pain/Inflammation Sulfamethoxazole-Trimethoprim [BACTRIM DS TAB 800/160 MG *] 1 tab PO BID #20 tab - Follow ups/Referrals Follow ups/Referrals: NFD,None [Primary Care Provider] - 3 days JES PHILLIPS [STAFF PHYSICIAN] - 3 days - Instructions Instructions: Urinary Tract Infection, Abdominal Pain, Adult, [id number] Additional Instructions: RETURN TO ED IF WORSE.
[2016-10-04 22:51] LABS: BASOPHILS # (AUTO) 0.1 X10^3/uL (0.0-0.1); BASOPHILS % (AUTO) 0.8 % (0.2-1.0); EOSINOPHILS # (AUTO) 0.1 x10^3/uL (0.0-0.2); EOSINOPHILS % (AUTO) 1.3 % (0.9-2.9); HEMATOCRIT 44.6 % (36.0-47.0); HEMOGLOBIN 15.4 g/dL (12.0-16.0); LYMPHOCYTES # (AUTO) 2.4 X10^3/uL (1.3-2.9); LYMPHOCYTES % (AUTO) 22.5 % (21.0-51.0); MEAN CORPUSCULAR HEMOGLOBIN 29.9 pg (27.0-34.0); MEAN CORPUSCULAR HGB CONC 34.5 g/dL (33.0-35.0); MEAN CORPUSCULAR VOLUME 86.7 fL (80.0-100.0); MEAN PLATELET VOLUME 8.4 fL (7.4-11.0); MONOCYTES # (AUTO) 0.6 x10^3/uL (0.3-0.8); MONOCYTES % (AUTO) 5.9 % (0.0-13.0); NEUTROPHILS # (AUTO) 7.3 x10^3/uL (2.2-4.8); NEUTROPHILS % (AUTO) 69.5 % (42.0-75.0); PLATELET COUNT 290 X10^3/uL (150.0-450.0); RED BLOOD COUNT 5.14 X10^6/uL (3.5-5.4); RED CELL DISTRIBUTION WIDTH 13.9 % (11.6-16.5); WHITE BLOOD COUNT 10.6 X10^3/uL (3.6-10.0)
[2016-10-04 23:03] LABS: BILIRUBIN,URINE NEGATIVE (NEGATIVE); BLOOD/HEMOGLOBIN,URINE NEGATIVE (NEGATIVE); GLUCOSE, URINE NEGATIVE (NEGATIVE); KETONES,URINE NEGATIVE (NEGATIVE); LEUKOCYTE ESTERASE ,URINE 1+ (NEGATIVE); NITRITES,URINE NEGATIVE (NEGATIVE); PROTEIN,URINE NEGATIVE (NEGATIVE); UROBILINOGEN,URINE NORMAL (NORMAL)
[2016-10-04 23:05] LABS: SERUM PREGNANCY TEST, QUAL NEGATIVE <10 mIU/mL
[2016-10-04 23:06] LABS: ALANINE AMINOTRANSFERASE 46 Units/L (12-78); ALKALINE PHOSPHATASE 75 Units/L (46-116); ASPARTATE AMINO TRANSFERASE 24 Units/L (15-37); BLOOD UREA NITROGEN 17 mg/dL (7-18); CALCIUM 9.6 mg/dL (8.5-10.1); CARBON DIOXIDE 22.5 mmol/L (21-32); CHLORIDE 106 mmol/L (98-107); CREATININE 0.86 mg/dL (0.55-1.02); GLUCOSE 100 mg/dL (65-99); SODIUM 140 mmol/L (136-145); TOTAL PROTEIN 7.7 g/dL (6.4-8.2); eGFR BLACK RACES > 60 (>60); eGFR NON BLACK RACES > 60 (>60)
[2016-10-04 23:13] LABS: AMORPHOUS SEDIMENT,UR 1+ /HPF (NEGATIVE); APPEARANCE,URINE CLOUDY (CLEAR); BACTERIA,URINE 2+ /HPF (NEGATIVE); COLOR,URINE YELLOW (YELLOW); RBC,URINE NONE SEEN /HPF (NEGATIVE); SQUAMOUS EPITHELIAL CELL,UR FEW /HPF (NEGATIVE); TRICHOMONAS,URINE MODERATE /HPF (NEGATIVE)
== END 2016-10-05 00:25 | disposition home or self-care (01) ==
LOC: ER 21:09
DX: N39.0 Urinary tract infection, site not specified (principal); R10.31 Right lower quadrant pain
CPT/HCPCS: 36415; 80053; 81001; 84703; 85025; 87086; 99282